=== PATIENT | male | born 1970 | race Caucasian/White ===

== ENCOUNTER 2020-08-17 14:30 | Emergency (ER) | payer OTHER, SELFPAY ==
[2020-08-17 14:31] VITALS: BP 126/74; PULSE 107; RESP 16; TEMP 38.1; O2SAT 96; BMI 28.5
--- NOTE | 2020-08-17 15:02 | RAD_ITS ---
STUDY: X-RAY CHEST REASON FOR EXAM: Male, 49 years old. Cough TECHNIQUE: Single AP portable view of the chest. COMPARISON: None. FINDINGS: Patchy left lower lobe infiltrate. There is no demonstrated pleural abnormality. Normal size heart. Normal mediastinum and jose. Normal visualized pulmonary arteries. Normal visualized aortic arch and descending thoracic aorta. Normal visualized thoracic spine. Normal visualized ribs, clavicles, and shoulders. There is no demonstrated abnormality of the visualized soft tissue structures of the upper abdomen. RAD/Chest 1 View (Portable) IMPRESSION: Patchy left lower lobe infiltrate. Electronically Signed: Juventino Delcid MD at 15:16 EDT , Service support ,
--- NOTE | 2020-08-17 16:10 | EX.ED.DYSGE1 ---
HPI History of Present Illness Chief Complaint: Fever Narrative Narrative: 49-year-old male reports he has a fever that began 4:00 this morning. Is been up to 102 degrees. He reports he has a little cough. This is nonproductive. He does complain of mild shortness of breath. He denies any abdominal pain, nausea, vomiting or diarrhea. He does report he has diffuse myalgias and a headache that is 3 out of 10 severity. Is a diffuse aching pain. He complains of diffuse weakness as well. PFSH [facility] Home Medications levofloxacin 500 mg PO DAILY #7 tab 08/17/20 [Rx Last Taken Unknown] Allergy/AdvReac Type Severity Reaction Status Date / Time tree nut Allergy NEEDS Verified 08/17/20 14:33 FOLLOW-UP Social History Smoking Status: Current every day smoker tobacco type: cigarettes ROS ROS ED Constitutional Constitutional ED: Reports chills and fever(s); Denies sweats Eyes Eyes: Denies change in vision ENT ENT ED: Denies sore throat Cardiovascular Cardiovascular: Denies chest pain Respiratory/Chest Respiratory/Chest: Reports cough and dyspnea; Denies dyspnea on exertion Gastrointestinal Gastrointestinal: Denies abdominal pain, diarrhea, melena, nausea or vomiting Genitourinary Genitourinary ED: Denies dysuria or urinary frequency Musculoskeletal Musculoskeletal: Reports myalgias Integumentary Denies rash Neurologic Neurologic: Reports headache(s) and weakness; Denies paresthesias EXAM Physical Exam Const Vital Signs: 08/17/20 14:31 08/17/20 15:29 Temperature 100.5 F H Temperature Source Temporal Pulse Rate 107 H Respiratory Rate 16 Respiratory Effort Normal Respiratory Pattern Normal Blood Pressure 126/74 H Blood Pressure Mean 91 Pulse Ox 96 Oxygen Delivery Method Room Air Positive well nourished and well developed General Appearance ED: well developed HEENT Reports normocephalic and head/scalp atraumatic Eyes PERRL Neck no lymphadenopathy, supple and no JVD General: Negative for tenderness Resp normal respiratory effort and clear to auscultation bilaterally Cardio regular rate, regular rhythm and no murmurs GI normal to inspection, nondistended, normoactive bowel sounds and non-tender GI Narrative: No guarding, rebound, or peritoneal signs. Palpation: soft Back/Spine Back/Spine Narrative: Nontender. Extremity General Extremety ED: Negative for edema or tenderness General Extremity: Negative for edema Neuro oriented x3, CN's II-XII intact bilaterally and no sensory deficits noted Sensorium / Orientation: alert Motor Exam: strength 5/5 throughout Psych mental status grossly normal Skin no rashes or lesions noted MDM MDM Radiography Diagnostic Testing: Radiology Impression Chest X-Ray 08/17/20 15:02 IMPRESSION: Patchy left lower lobe infiltrate. Electronically Signed: Juventino Delcid MD at 15:16 EDT , Service support , Treatment and Re-Evaluation Comments:: Emergency department course: COVID-19 is negative. Patient does not have insurance and want to minimize the bill. He refused an IV and labs. He feels well and would like to go home. Treatment plan: Patient will be discharged with Levaquin. Instructed to follow-up his primary care physician in 3 to 5 days if not improving. Return to the emergency department for any worsening symptoms. Disposition: To home in improved and stable condition. This note was generated with [employer] dictation software. It may contain incorrect words, spelling, and punctuation that were not noted in review of the chart prior to signing. Discharge Plan Triage Chief Complaint: Fever ED Provider: Segundo Saavedra Dx/Rx/DC Orders Clinical Impression: Pneumonia Instructions: ED Pneumonia (Adult) Prescriptions: New levofloxacin [levofloxacin] 500 MG tablet 500 mg PO DAILY Qty: 7 RF: 0 Primary Care Provider: Care Physician,No Primary Referrals: Alexandria Kirby [NON-STAFF] - 1 Week if not improving Care Physician,No Primary [Primary Care Provider] - Disposition Disposition: Home, self care Discharge Date/Time: 08/17/20 16:24
== END 2020-08-17 16:24 | disposition home or self-care (01) ==
LOC: ED 15:34
PROVIDERS: Emergency Provider Emergency Medicine
DX: J18.9 Pneumonia, unspecified organism (principal); F17.210 Nicotine dependence, cigarettes, uncomplicated
CPT/HCPCS: 71045; 87426; 99282

== ENCOUNTER 2022-11-05 05:11 | Emergency (ER) | payer BC, SELFPAY ==
[2022-11-05 05:12] VITALS: BP 135/83; PULSE 67; RESP 19; TEMP 36.3; O2SAT 98; BMI 25.1
--- NOTE | 2022-11-05 05:39 | RAD_ITS ---
EXAM: XR CHEST, 2 VIEWS CLINICAL INDICATION: chest pain TECHNIQUE: Frontal and lateral views of the chest. COMPARISON: 06/17/2020. FINDINGS: LUNGS AND PLEURAL SPACES: Previously noted left lingular pneumonia has resolved. No pneumothorax. No effusion. HEART: Unremarkable. Cardiac silhouette not enlarged. MEDIASTINUM: Central airways and mediastinal contour are unremarkable. BONES/JOINTS: Unremarkable. SOFT TISSUES: Unremarkable. RAD/Chest PA and Lateral IMPRESSION: Previously noted left lingular pneumonia has resolved. No acute abnormality. Electronically Signed: Duke Koenig MD at 6:18 EDT ,
[2022-11-05] MEDS: 0.9% Normal Saline 1,000 ML 999 ML IV (05:43)
[2022-11-05] MEDS: Aspirin 325 MG Tablet PO (05:43)
[2022-11-05 05:46] LABS: Absolute Lymphocyte Count 1.93 X10^3/uL (0.83-4.51); Absolute Neutrophil Count 6.6 X10^3/uL (2.0-7.7); Basophil# 0.06 X10^3/uL; Basophil% 0.6 % (0-1); Eosinophil# 0.73 X10^3/uL; Eosinophils% 7.1 % (0-5); Hematocrit 47.5 % (40-54); Hemoglobin 15.9 g/dL (13.0-16.5); Lymphocyte # 1.93 X10^3/ul (0.83-4.51); Lymphocyte % 18.7 % (19-41); Mean Corp Hgb Conc 33.5 g/dL (32-36); Mean Corpuscular Hgb 32.6 pg (27.0-32.0); Mean Corpuscular Volume 97.3 fL (80-94); Mean Platelet Vol. 10.2 fl (6.2-12.0); Monocyte# 0.98 X10^3/uL; Monocyte% 9.5 % (0-10); NRBC Flagged by Analyzer 0 % (0-5); Neutrophil # 6.56 X10^3/uL (2.7-7.7); Neutrophil % 63.6 % (47-70); Platelet Count 279 K/mm3 (150-450); RBC Distribution Width CV 12.7 % (11.6-14.6); RBC Distribution Width SD 45.5 fl (35.1-43.9); Red Blood Count 4.88 M/mm3 (4.6-6.2); White Blood Count 10.3 K/mm3 (4.4-11.0)
--- NOTE | 2022-11-05 05:48 | EKG12_ITS ---
Test Reason : CP Blood Pressure : / mmHG Vent. Rate : 062 BPM Atrial Rate : 062 BPM P-R Int : 152 ms QRS Dur : 100 ms QT Int : 406 ms P-R-T Axes : 064 062 046 degrees QTc Int : 412 ms Normal sinus rhythm Normal ECG Confirmed by MINAL RILEY ([id number]), fashion editor ОЛЬГА GUERRA ([id number]) on 11/09/2022 9:30:45 AM Referred By: ACOSTA Confirmed By:MINAL RILEY
[2022-11-05 05:58] LABS: D-Dimer Quantitative (DVT/PE) 0.33 FEU/ug/m (0.27-0.49)
[2022-11-05 06:06] LABS: Anion Gap 6 (5-15); BUN 10 mg/dL (7-18); BUN/Creat Ratio 12.9 RATIO (10-20); Calcium,Total 8.6 mg/dL (8.5-10.1); Chloride 108 mmol/L (98-107); Creatinine, Serum 0.78 mg/dL (0.70-1.30); EST Glomerular Filtration Rate 111 mL/min (>60); Est Glom Filt Rate - Afr Amer 135 mL/min (>60); Estimated Creatinine Clearance 120.21 ml/min; Glucose 102 mg/dL (74-106); Magnesium 2.1 mg/dL (1.6-2.6); Potassium 3.6 mmol/L (3.5-5.1); Sodium Level 138 mmol/L (136-145); Troponin-I HS 4 pg/mL (3.0-78.0)
--- NOTE | 2022-11-05 06:16 | EX.ED.DYSGE1 ---
HPI History of Present Illness Chief Complaint: Chest Pain Informant: patient Narrative Narrative: Patient is a 52-year-old male with past medical history of smoking. He states he has had mild left-sided chest discomfort for 2 days that has been constant in nature but can wax and wane in severity. He states it does seem to increase with inspiration. He denies any recent travel surgery or history of DVT/PE. He denies any history of hypertension hyperlipidemia diabetes or previous heart issues. He states that today he was at work when he felt lightheaded and just off associated with this chest pain and therefore was concerned this could be cardiac in nature he presents for evaluation [facility] Home Medications NK 11/05/22 [History Last Taken Unknown] Allergy/AdvReac Type Severity Reaction Status Date / Time tree nut Allergy NEEDS Verified 11/05/22 05:16 FOLLOW-UP Surgical History (Updated 11/05/22 @ 05:14 by Cat Hsu) History of appendectomy Social History Smoking Status: Current every day smoker tobacco type: cigarettes ROS ROS ED Constitutional Constitutional ED: Denies chills or fever(s) ENT ENT ED: Denies sore throat Cardiovascular Cardiovascular: Reports chest pain; Denies palpitations or racing heartbeat Respiratory/Chest Respiratory/Chest: Denies cough or dyspnea Gastrointestinal Gastrointestinal: Denies abdominal pain, diarrhea, nausea or vomiting Genitourinary Genitourinary ED: Denies dysuria Musculoskeletal Musculoskeletal: Denies myalgias Integumentary Denies rash Neurologic Neurologic: Denies headache(s) Hematologic/Lymphatic Hematologic/Lymphatic: Denies easy bleeding or easy bruising EXAM Physical Exam Const Vital Signs: 11/05/22 05:12 Temperature 97.4 F L Temperature Source Temporal Pulse Rate 67 Respiratory Rate 19 H Blood Pressure 135/83 H Blood Pressure Mean 100 Pulse Ox 98 Oxygen Delivery Method Room Air Positive well nourished and well developed General Appearance ED: well developed; Negative for pallor HEENT Reports dry mucous membranes HEENT Narrative: Mucous membranes are dry and tacky. No tongue or lip swelling no oral lesions no airway edema or compromise. Mouth ED: Yes dry mucous membranes Mouth: dry mucous membranes Eyes PERRL and EOMs intact bilaterally General Eye ED: Negative for scleral icterus Neck supple and no JVD Chest Wall palpation of chest normal Chest Narrative: No bony deformity or crepitance Resp normal respiratory effort and clear to auscultation bilaterally Resp Narrative: No nasal flaring retractions tachypnea or accessory muscle use Cardio regular rate and regular rhythm Rate: other Other Details: Radial and carotid pulses are equal and symmetric GI normal to inspection, nondistended, normoactive bowel sounds, non-tender, non-distended and no masses GI Narrative: No voluntary guarding or rigidity. No pulsatile mass or fluid wave Auscultation: normoactive bowel sounds Palpation: soft Extremity normal to inspection Extremity Narrative: No asymmetric edema no pitting edema negative Homans' sign bilaterally Neuro oriented x3 and CN's II-XII intact bilaterally Sensorium / Orientation: alert Motor Exam: strength 5/5 throughout Psych Psych Narrative: Patient has a flat affect Skin no rashes or lesions noted General Skin Exam: Negative for jaundice or pallor MDM MDM MDM Narrative Medical decision making narrative: Patient presented to the ER with stable vitals and reported that he had constant chest pain that was left-sided for the past 2 days but it would wax and wane in severity. He reported it could slightly worsen with inspiration. Differential diagnosis for acute coronary syndrome versus cardiac dysrhythmia versus pulmonary embolus versus pneumonia or pneumothorax. Patient blood work was obtained which shows a troponin of 4 and as patient's pain has been constant for over 24 hours I do not feel there is need for a delta troponin based on this normal value. D-dimer was obtained based on his report of worsening pain with inspiration and it is normal at 0.33 going against PE or dissection. Chest x-ray revealed no obvious lung pathology as a cause of his symptoms either. Therefore at this time with negative D-dimer normal troponin and no lung pathology noted on imaging study I do not feel there is need for further work-up in the ER and patient is otherwise safe for discharge History & Record Review Discussion w/independent historian: Patient Lab Data Attestation: I reviewed the patient's lab results. Labs: Laboratory Results - last 24 hr 11/05/22 05:20 WBC 10.3 RBC 4.88 Hgb 15.9 Hct 47.5 MCV 97.3 H MCH 32.6 H MCHC 33.5 RDW Std Deviation 45.5 H RDW Coeff of Buffy 12.7 Plt Count 279 MPV 10.2 Immature Gran % (Auto) 0.500 Neut % (Auto) 63.6 Lymph % (Auto) 18.7 L [place] % (Auto) 9.5 Eos % (Auto) 7.1 H Baso % (Auto) 0.6 Absolute Neuts (auto) 6.6 Absolute Lymphs (auto) 1.93 Nucleated RBC % 0 D-Dimer Quant (PE/DVT) 0.33 Sodium 138 Potassium 3.6 Chloride 108 H Carbon Dioxide 24.0 Anion Gap 6 BUN 10 Creatinine 0.78 Estim Creat Clear Calc 120.21 Est GFR (MDRD) Af Amer 135 Est GFR (MDRD) Non-Af 111 BUN/Creatinine Ratio 12.9 Glucose 102 Calcium 8.6 Magnesium 2.1 Troponin I High Sens 4 Radiography Diagnostic Testing: Clinical Impression(s) from Imaging Studies Chest X-Ray 11/05/22 05:39 IMPRESSION: Previously noted left lingular pneumonia has resolved. No acute abnormality. Electronically Signed: Duke Koneig MD at 6:18 EDT , Chest x-ray as interpreted by the emergency medicine physician reveals hyperinflated lungs consistent with smoking history/COPD but no acute infiltrate pneumothorax or pleural effusion Discharge Plan Triage Chief Complaint: Chest Pain ED Provider: Zaire Rivas Dx/Rx/DC Orders Clinical Impression: Nonspecific chest pain, Tobacco abuse Instructions: ED Chest Pain, Uncertain Cause Prescriptions: No Action NK Primary Care Provider: Care Physician,No Primary Referrals: Mike Crews, [Med Staff - [employer]] - Care Physician,No Primary [Primary Care Provider] - Activity Restrictions/Additional Instructions: Your work-up today did not show any signs of active heart disease or potential blood clot. There is no obvious pneumonia noted on your x-ray either. Please follow-up with your family physician for repeat evaluation and discuss potential further testing such as stress test or heart cath if symptoms persist and return to the ER should you have any further concerns Disposition Disposition: Home, Self Care Discharge Date/Time: 11/05/22 07:01
== END 2022-11-05 07:01 | disposition home or self-care (01) ==
PROVIDERS: Emergency Provider Emergency Medicine; Visit Provider Emergency Medicine
DX: R07.9 Chest pain, unspecified (principal); F17.210 Nicotine dependence, cigarettes, uncomplicated
CPT/HCPCS: 71046; 80048; 83735; 84484; 85025; 85379; 93005; 96360; 99283; J7030

== ENCOUNTER 2024-01-21 07:17 | Inpatient (IN) | payer BC, SELFPAY ==
[2024-01-21] VITALS (17 sets, daily range): BP systolic 114–145; BP diastolic 64–91; PULSE 63–88; RESP 16–23; TEMP 36.8–37.4; O2SAT 93–99; BMI 24.5; BMI 25.9
--- NOTE | 2024-01-21 07:37 | EKG12_ITS ---
Test Reason : CP Blood Pressure : */* mmHG Vent. Rate : 86 BPM Atrial Rate : 86 BPM P-R Int : 138 ms QRS Dur : 86 ms QT Int : 352 ms P-R-T Axes : 78 77 60 degrees QTcB Int : 421 ms Normal sinus rhythm Normal ECG Confirmed by DARSHANA RHODES, RUBEN ([id number]), subeditor LEVI LOERA ([id number]) on 01/23/2024 8:13:27 AM Referred By: Confirmed By: RUBEN GILLILAND MD
--- NOTE | 2024-01-21 07:37 | CT_ITS ---
INDICATION: AORTIC DISSECTION. Chest pain. Right leg numbness. EXAMINATION: CTA CHEST, ABDOMEN AND PELVIS WITH CONTRAST - TECHNIQUE: A CTA of the chest, abdomen, and pelvis is obtained with sagittal and coronal reconstructed MIP views. Three-dimensional surface rendered sequence of the thoracic and abdominal aorta was obtained. A radiation dose optimization technique was used for this scan. mL of Isovue-[id number]. Oral contrast: None. COMPARISON: None. FINDINGS: CT CHEST: THORACIC AORTA: No atheromatous disease, no aneurysmal changes or dissection. ABDOMINAL AORTA: No aneurysm or dissection. No significant atheromatous disease. The iliac arteries are unremarkable. LUNGS: The lungs are well-expanded without acute or chronic changes. No effusions or pneumothorax. MEDIASTINUM: The thyroid gland is normal. No mediastinal or hilar adenopathy. HEART: Heart is normal size. No pericardial effusion. No CAD. CT ABDOMEN AND PELVIS: LIVER: The liver enhances homogeneously. No masses identified. GALLBLADDER: The CBD is normal. Normal gallbladder. SPLEEN: Normal. PANCREAS: No masses or inflammation. ADRENAL GLANDS: Normal. KIDNEYS AND URETERS: The kidneys both enhance appropriately. There are normal size and shape. No hydronephrosis or nephrolithiasis. No renal masses or cysts. STOMACH: Small hiatal hernia. SMALL BOWEL: No abnormal distention of the small bowel. MESENTERY: No mesenteric inflammation. No ascites. COLON: No significant diverticulosis, masses or inflammation. The colon otherwise is normal. There is a large fatty ileocecal valve. APPENDIX: The appendix is visualized and normal. IVC: Normal. RETROPERITONEUM: No retroperitoneal lymphadenopathy. PELVIC STRUCTURES: Normal bladder. SOFT TISSUES ABDOMEN: The anterior abdominal wall is normal. SOFT TISSUE CHEST: The extrathoracic soft tissues are normal. BONES: No fractures or significant degenerative disease. CT/CTA Chst, Abd, Pel W and/or WO IMPRESSION: Normal contrast-enhanced CT of the chest. Normal contrast-enhanced CT of the abdomen and pelvis. Electronically Signed: Juventino Delcid MD at 9:00 EDT ,
--- NOTE | 2024-01-21 07:41 | EX.ED.DYSGE1 ---
HPI History of Present Illness Chief Complaint: Chest Pain Informant: patient Narrative Narrative: 53-year-old male presenting to the emergency room for chest pain. Patient states that Friday night around 8:00 he developed a pressure in his chest that radiated up into his neck and developed a throbbing frontal headache. He states he feels like he has a knife in the front of his chest going into the back. Friday night he reports numbness over the right thigh. Symptoms improved but during the night he felt worse. He notes that he has recently cut back on his tobacco use. He denies any known medical problems. He does not know who his doctor is. He notes no fevers or change in cough. No vomiting or diarrhea. No rashes. He states his arms feel heavy. He feels off balance when he goes to walk but the room is not spinning. PFSH PFS Home Medications ?Medication ?Instructions ?Recorded ?Last Taken ?Type NK 11/05/22 Unknown History Allergy/AdvReac Type Severity Reaction Status Date / Time tree nut Allergy NEEDS Verified 11/05/22 05:16 FOLLOW-UP Surgical History History of appendectomy Social History Smoking Status: Current every day smoker tobacco type: cigarettes ROS ROS ED Constitutional Constitutional ED: Denies chills, fever(s) or weight loss Eyes Eyes: Denies change in vision or diplopia ENT ENT ED: Reports rhinorrhea and other Details: Mild sinus congestion/drainage ; Denies ear pain or sore throat Cardiovascular Cardiovascular: Reports chest pain; Denies orthopnea, palpitations or racing heartbeat Respiratory/Chest Respiratory/Chest: Denies cough, dyspnea or orthopnea Gastrointestinal Gastrointestinal: Denies abdominal pain, diarrhea, nausea or vomiting Genitourinary Genitourinary ED: Denies dysuria, hematuria or urinary frequency Musculoskeletal Musculoskeletal: Reports back pain; Denies arthralgias or myalgias Integumentary Denies abscess or rash Neurologic Neurologic: Reports headache(s) and paresthesias; Denies weakness Psychiatric Psychiatric: Denies anxiety, depression, suicidal ideation or suicidal thoughts Endocrine Endocrinology: Denies polydipsia, polyphagia or polyuria Allergic/Immunologic Allergic/Immunologic ED: Denies mouth swelling, tongue swelling or urticaria EXAM Physical Exam Const Vital Signs: 01/21/24 07:18 01/21/24 07:19 01/21/24 07:26 Temperature 99.2 F H Temperature Source Oral Pulse Rate 88 86 Respiratory Rate 16 18 Respiratory Effort Normal Non-Labored Respiratory Pattern Normal Blood Pressure 136/86 H 145/88 H Blood Pressure Mean 102 107 Pulse Ox 98 93 Oxygen Delivery Method Room Air Room Air 01/21/24 08:18 01/21/24 09:00 01/21/24 10:00 Temperature Temperature Source Pulse Rate 69 71 77 Respiratory Rate 16 21 H 23 H Respiratory Effort Respiratory Pattern Blood Pressure 128/81 H 116/73 120/79 Blood Pressure Mean 96 87 92 Pulse Ox 99 99 99 Oxygen Delivery Method Room Air Room Air Room Air 01/21/24 11:00 01/21/24 12:00 01/21/24 12:05 Temperature 99.4 F H Temperature Source Oral Pulse Rate 74 76 80 Respiratory Rate 22 H 16 18 Respiratory Effort Respiratory Pattern Blood Pressure 121/66 H 114/64 114/64 Blood Pressure Mean 84 80 80 Pulse Ox 97 93 97 Oxygen Delivery Method Room Air Room Air Room Air 01/21/24 12:48 Temperature 99.4 F H Temperature Source Pulse Rate 82 Respiratory Rate 22 H Respiratory Effort Respiratory Pattern Blood Pressure 115/77 Blood Pressure Mean 89 Pulse Ox 93 Oxygen Delivery Method Positive well nourished and well developed General Appearance ED: well developed HEENT Reports normocephalic, head/scalp atraumatic and moist mucous membranes Eyes PERRL and EOMs intact bilaterally Neck no lymphadenopathy, supple and no JVD Resp normal respiratory effort and clear to auscultation bilaterally Cardio regular rate, regular rhythm and no murmurs Cardio Narrative: +2 radial pulse in the upper extremities. Normal carotid upstroke bilaterally GI normal to inspection, nondistended, normoactive bowel sounds and non-tender Palpation: soft Back/Spine no CVA tenderness and normal ROM Extremity normal to inspection General Extremety ED: Negative for edema General Extremity: Negative for edema Neuro oriented x3 and CN's II-XII intact bilaterally Sensorium / Orientation: alert Motor Exam: strength 5/5 throughout Psych mental status grossly normal Mood & Affect: Negative for depressed or tearful Skin no rashes or lesions noted and no wounds MDM MDM MDM Narrative Medical decision making narrative: Differential diagnosis would include but not limited to aortic dissection aneurysm pulmonary embolism acute coronary syndrome electrolyte abnormalities anemia brain mass/intracranial hemorrhage reflux EKG done upon arrival shows a sinus rhythm with no concerning ST segments. I was concerned for aortic dissection and a CTA of the chest abdomen pelvis was ordered which was negative for dissection or embolism. No obvious intra-abdominal pathology to explain his symptomology. Basic blood work was obtained 2 sets of cardiac enzymes are negative no electrolyte disturbance is observed urinalysis is negative patient's hemoglobin is 15.6 initially patient's lactic acid 2.1 then down to 1.1 question significance of this as he does not appear to be in a shock state. The patient has had several runs of NSVT. Rate approaches around 200. Its narrow complex in nature and terminates on its own. Patient does note that he has had this for a long time but nobody has been able to identify it or capture it. He has had stress test and Holter monitor. He states that he had been going to attributed to stress. Interesting though when the patient had the SVT he stated that the pain got worse. However there are times where he has the pain that he does not have that tachycardia. I do not have a clear etiology for the patient's pain but I am concerned enough that I think it is reasonable to observe him in the hospital. History & Record Review Discussion w/independent historian: Patient and Family Lab Data Attestation: I reviewed the patient's lab results. Labs: Laboratory Results - last 24 hr 01/21/24 01/21/24 01/21/24 07:29 08:57 09:42 WBC 10.3 RBC 4.61 Hgb 15.6 Hct 45.0 MCV 97.6 H MCH 33.8 H MCHC 34.7 RDW Std Deviation 43.7 RDW Coeff of Buffy 12.0 Plt Count 279 MPV 10.1 Immature Gran % (Auto) 0.300 Neut % (Auto) 78.2 H Lymph % (Auto) 8.1 L [place] % (Auto) 9.6 Eos % (Auto) 3.3 Baso % (Auto) 0.5 Absolute Neuts (auto) 8.0 H Absolute Lymphs (auto) 0.83 Nucleated RBC % 0 PT 12.5 INR 0.9 APTT 27.7 Sodium 141 Potassium 4.0 Chloride 112 H Carbon Dioxide 23.0 Anion Gap 6 BUN 6 L Creatinine 0.80 Estim Creat Clear Calc 108.99 Est GFR (MDRD) Af Amer 129 Est GFR (MDRD) Non-Af 106 BUN/Creatinine Ratio 7.5 L Glucose 112 H Lactic Acid 2.1 H* Calcium 8.8 Total Bilirubin 0.40 Direct Bilirubin 0.19 AST 16 ALT 18 Alkaline Phosphatase 75 Troponin I High Sens < 3 L 3 Total Protein 6.6 Albumin 3.1 L Globulin 3.5 Urine Color Yellow Urine Clarity Clear Urine pH 7.0 Ur Specific [place] 1.005 Urine Protein 15 H Urine Glucose (UA) Normal Urine Ketones Negative Urine Occult Blood 50 H Urine Nitrite Negative Urine Bilirubin Negative Urine Urobilinogen Normal Ur Leukocyte Esterase 25 H Urine RBC 0-5 SEEN Urine WBC 0-5 SEEN Ur Squamous Epith Cells 0-5 SEEN Urine Bacteria 0 SEEN Urine Mucus 0 SEEN 01/21/24 12:00 WBC RBC Hgb Hct MCV MCH MCHC RDW Std Deviation RDW Coeff of Buffy Plt Count MPV Immature Gran % (Auto) Neut % (Auto) Lymph % (Auto) [place] % (Auto) Eos % (Auto) Baso % (Auto) Absolute Neuts (auto) Absolute Lymphs (auto) Nucleated RBC % PT INR APTT Sodium Potassium Chloride Carbon Dioxide Anion Gap BUN Creatinine Estim Creat Clear Calc Est GFR (MDRD) Af Amer Est GFR (MDRD) Non-Af BUN/Creatinine Ratio Glucose Lactic Acid 1.1 Calcium Total Bilirubin Direct Bilirubin AST ALT Alkaline Phosphatase Troponin I High Sens Total Protein Albumin Globulin Urine Color Urine Clarity Urine pH Ur Specific [place] Urine Protein Urine Glucose (UA) Urine Ketones Urine Occult Blood Urine Nitrite Urine Bilirubin Urine Urobilinogen Ur Leukocyte Esterase Urine RBC Urine WBC Ur Squamous Epith Cells Urine Bacteria Urine Mucus Radiography Diagnostic Testing: Clinical Impression(s) from Imaging Studies Chest/Abdomen/Pelvis CTA 01/21/24 07:37 IMPRESSION: Normal contrast-enhanced CT of the chest. Normal contrast-enhanced CT of the abdomen and pelvis. Electronically Signed: Juventino Delcid MD at 9:00 EDT , Brain CT 01/21/24 11:07 IMPRESSION: Normal unenhanced CT scan of the brain. Sinusitis. Electronically Signed: Juventino Delcid MD at 11:34 EDT , EKG Initial EKG: Attestation: I personally reviewed and interpreted this EKG as follows: Comments: Normal sinus rhythm ventricular rate of 86 bpm Management Discussion w/another healthcare provider: Hospitalist (Dr. Loyola) Discharge Plan Dx/Rx/DC Orders Clinical Impression: SVT (supraventricular tachycardia), Chest pain, Dizziness Disposition Disposition: Acute Care Hospital [facility] Discharge Date/Time: 01/21/24 13:54
[2024-01-21 07:56] LABS: Absolute Lymphocyte Count 0.83 X10^3/uL (0.83-4.51); Basophil# 0.05 X10^3/uL; Basophil% 0.5 % (0-1); Eosinophil# 0.34 X10^3/uL; Eosinophils% 3.3 % (0-5); Hemoglobin 15.6 g/dL (13.0-16.5); Lymphocyte # 0.83 X10^3/ul (0.83-4.51); Lymphocyte % 8.1 % (19-41); Mean Corp Hgb Conc 34.7 g/dL (32-36); Mean Corpuscular Hgb 33.8 pg (27.0-32.0); Mean Corpuscular Volume 97.6 fL (80-94); Mean Platelet Vol. 10.1 fl (6.2-12.0); Monocyte# 0.98 X10^3/uL; Monocyte% 9.6 % (0-10); NRBC Flagged by Analyzer 0 % (0-5); Neutrophil # 8.03 X10^3/uL (2.7-7.7); Neutrophil % 78.2 % (47-70); Platelet Count 279 K/mm3 (150-450); RBC Distribution Width SD 43.7 fl (35.1-43.9); Red Blood Count 4.61 M/mm3 (4.6-6.2); White Blood Count 10.3 K/mm3 (4.4-11.0)
[2024-01-21 08:42] LABS: Lactic Acid 2.1 mmol/L (0.4-1.9)
[2024-01-21 08:45] LABS: International Normalized Ratio 0.9; Partial Thromboplast Time 27.7 Seconds (24.1-36.2); Prothrombin Time (Protime)PT. 12.5 SECONDS (11.7-14.9)
[2024-01-21 08:54] LABS: AST(SGOT) 16 U/L (15-37); Alanine Aminotransfer ALT/SGPT 18 U/L (16-61); Albumin, Serum 3.1 g/dL (3.2-5.0); Alkaline Phosphatase 75 U/L (45-117); Anion Gap 6 (5-15); BUN 6 mg/dL (7-18); BUN/Creat Ratio 7.5 RATIO (10-20); Bilirubin, Direct 0.19 mg/dL (0.00-0.30); Calcium,Total 8.8 mg/dL (8.5-10.1); Chloride 112 mmol/L (98-107); EST Glomerular Filtration Rate 106 mL/min (>60); Est Glom Filt Rate - Afr Amer 129 mL/min (>60); Estimated Creatinine Clearance 108.99 ml/min; Globulin 3.5 g/dL (2.2-4.2); Glucose 112 mg/dL (74-106); Protein, Total 6.6 g/dL (6.4-8.2); Sodium Level 141 mmol/L (136-145); Troponin-I HS (w/2H Reflex) < 3 pg/mL (3.0-78.0)
[2024-01-21 09:00] LABS: Bacteria 0 SEEN /hpf (None Seen); Mucous, Urine 0 SEEN /hpf (<or=2+)
[2024-01-21 09:01] LABS: Color, Urine Yellow (Yellow); Glucose, Dipstick Normal (Normal); Ketone-Dipstick Negative (Negative); Leukocyte Esterase-Dipstick 25 /ul (Negative); Nitrite-Dipstick Negative (Negative); Occult Blood-Urine 50 /ul (Negative); Protein-Dipstick 15 mg/dl (Negative); Specific Gravity, Urine 1.005 (1.002-1.030); Urine Bilirubin Dipstick Negative (Negative); Urine Clarity Clear (Clear); Urine Urobilinogen Normal (Normal)
[2024-01-21 09:07] LABS: Red Blood Cells-Urine 0-5 SEEN /hpf (0-5); Squamous Epithelial Cells - UA 0-5 SEEN /hpf (0-5); White Blood Cells 0-5 SEEN /hpf (0-5)
[2024-01-21 09:53] LABS: Reflex Troponin-HS? (from REC) Y
[2024-01-21 10:20] LABS: Troponin-I HS 3 pg/mL (3.0-78.0)
--- NOTE | 2024-01-21 11:07 | CT_ITS ---
STUDY: CT BRAIN WITHOUT CONTRAST REASON FOR EXAM: Male, 53 years old. Headache. Patient had a previous injection of contrast for CT scan of the abdomen. RADIATION DOSAGE (If Supplied By Facility): CTDIvol = ( 44.99 ) mGy, DLP = ( 863.60 ) mGycm TECHNIQUE: Transaxial CT imaging of the brain was performed without administration of intravenous contrast material. Individualized dose optimization techniques were used for this CT. COMPARISON: No relevant priors. FINDINGS: Normal soft tissue structures. Normal calvarium. Normal size ventricles and extra-axial spaces for the patient''s age. Normal white matter tracts of the cerebral hemispheres. Normal basal ganglia and thalami. Normal brainstem. Normal cerebellum. There is no intracranial hemorrhage. There are no findings of an acute ischemic infarction. Partial opacification of the ethmoid sinuses and the left maxillary sinus. Mucosal thickening of the right maxillary sinus. CT/Brain/Head without Contrast IMPRESSION: Normal unenhanced CT scan of the brain. Sinusitis. Electronically Signed: Juventino Delcid MD at 11:34 EDT ,
[2024-01-21 11:53] LABS: Reflex Lactate? Y
[2024-01-21] MEDS: Ketorolac 30 MG/ML Syringe IV (11:55)
--- NOTE | 2024-01-21 12:31 | HP.PCM.HOS_ITS ---
HPI - General General Date of Admission: 01/21/24 Date of Service: 01/21/24 Chief Complaint: chest pain HPI Narrative AMITA MCCRACKEN, is a 53 M with a PMH as outlined who presents via the ED on 01/21/2024 with a complaint of chest pain. Chest pain started the night beore admission, and radiated to his neck. He had associated frontal headache adn felt like he was being stabbed in the chest with a knife. He denied any dizziness or lightheadedness, palpitation, nausea or vomiting. Review of systems otherwise negative. Vitals in the ED were BP of 114/64, NC of 80, RR of 18 and temp of 99.4F. He was saturating at 97% on room air. CBC showed Hb of 15.6, wbc of 10.3 and platelets of 279. INR was 0.9 and Chemistry showed sodium of 141, potassium of 4 and Cr of 0.8. Troponins x 2 were negative. CTA chest, abdomen adn pelvix was unremarkable and showed no evidence of aortic dissection or PE. He was noted to go into SVT in the ED with a heart rate of ~ 200, which spontaneously terminated. He did have associated chest pain at the time of the SVT. He is being admitted to be managed for chest pain to rule out ACS, in the setting of SVT [facility] Home Medications ?Medication ?Instructions ?Recorded ?Last Taken ?Type NK 11/05/22 Unknown History Allergy/AdvReac Type Severity Reaction Status Date / Time tree nut Allergy NEEDS Verified 11/05/22 05:16 FOLLOW-UP Surgical History History of appendectomy Social History Smoking Status: Current every day smoker tobacco type: cigarettes ROS Review of Systems ROS Unobtainable: Denies due to encephalopathy Constitutional Constitutional: Reports fatigue, malaise and weakness; Denies anorexia, chills or fever(s) Eyes Eyes: Denies change in vision ENT HEENT: Denies dysphagia, headache(s) or sore throat Cardiovascular Cardiovascular: Reports chest pain, dyspnea on exertion, lightheadedness, palpitations and rapid heart rate; Denies edema, orthopnea, paroxysmal nocturnal dyspnea or syncope Respiratory/Chest Respiratory/Chest: Reports dyspnea; Denies cough, productive cough, shortness of breath at rest or shortness of breath with exertion Gastrointestinal Gastrointestinal: Denies abdominal pain, constipation or diarrhea Genitourinary Genitourinary: Denies dysuria or hematuria Musculoskeletal Musculoskeletal: Denies arthralgias Neurologic Neurologic: Denies confusion, dizziness, focal weakness, headache(s) or numbness Psychiatric Psychiatric: Denies anxiety Vital Signs Vital Signs Vital Signs: 01/21/24 07:18 01/21/24 07:19 01/21/24 07:26 Temperature 99.2 F H Temperature Source Oral Pulse Rate 88 86 Respiratory Rate 16 18 Respiratory Effort Normal Non-Labored Respiratory Pattern Normal Blood Pressure 136/86 H 145/88 H Blood Pressure Mean 102 107 Pulse Ox 98 93 Oxygen Delivery Method Room Air Room Air 01/21/24 08:18 01/21/24 09:00 01/21/24 10:00 Temperature Temperature Source Pulse Rate 69 71 77 Respiratory Rate 16 21 H 23 H Respiratory Effort Respiratory Pattern Blood Pressure 128/81 H 116/73 120/79 Blood Pressure Mean 96 87 92 Pulse Ox 99 99 99 Oxygen Delivery Method Room Air Room Air Room Air 01/21/24 11:00 01/21/24 12:00 01/21/24 12:05 Temperature 99.4 F H Temperature Source Oral Pulse Rate 74 76 80 Respiratory Rate 22 H 16 18 Respiratory Effort Respiratory Pattern Blood Pressure 121/66 H 114/64 114/64 Blood Pressure Mean 84 80 80 Pulse Ox 97 93 97 Oxygen Delivery Method Room Air Room Air Room Air Weight Weight: 171 lb 4.787 oz Body Mass Index (BMI) 24.5 Physical Exam Const alert, oriented x3 and no apparent distress General Appearance: cooperative HEENT normocephalic, head/scalp atraumatic, moist oral mucous membranes and oropharynx normal Mouth: oral and palatal mucosa normal Eyes PERRL, EOMs intact bilaterally and conjunctivae normal Neck no lymphadenopathy and supple Resp normal respiratory effort, no retractions, no use of accessory muscles and clear to auscultation bilaterally Cardio regular rate, regular rhythm, S1 normal heart sound, S2 normal heart sound and no murmurs GI normal to inspection, nondistended, normoactive bowel sounds, soft to palpation, non-tender and non-distended Extremity normal to inspection, full ROM and no clubbing, cyanosis or edema Neuro oriented x3 and no focal motor deficits Sensorium / Orientation: awake and alert Motor Exam: strength 5/5 throughout Psych affect normal Results Lab / Micro Data 01/21/24 07:29 01/21/24 07:29 Labs: Laboratory Results - last 24 hr 01/21/24 07:29: WBC 10.3, RBC 4.61, Hgb 15.6, Hct 45.0, MCV 97.6 H, MCH 33.8 H, MCHC 34.7, RDW Std Deviation 43.7, RDW Coeff of Buffy 12.0, Plt Count 279, MPV 10.1, Immature Gran % (Auto) 0.300, Neut % (Auto) 78.2 H, Lymph % (Auto) 8.1 L, [place] % (Auto) 9.6, Eos % (Auto) 3.3, Baso % (Auto) 0.5, Absolute Neuts (auto) 8.0 H, Absolute Lymphs (auto) 0.83, Nucleated RBC % 0, PT 12.5, INR 0.9, APTT 27.7, Sodium 141, Potassium 4.0, Chloride 112 H, Carbon Dioxide 23.0, Anion Gap 6, BUN 6 L, Creatinine 0.80, Estim Creat Clear Calc 108.99, Est GFR (MDRD) Af Amer 129, Est GFR (MDRD) Non-Af 106, BUN/Creatinine Ratio 7.5 L, Glucose 112 H, Lactic Acid 2.1 H*, Calcium 8.8, Total Bilirubin 0.40, Direct Bilirubin 0.19, AST 16, ALT 18, Alkaline Phosphatase 75, Troponin I High Sens < 3 L, Total Protein 6.6, Albumin 3.1 L, Globulin 3.5 01/21/24 08:57: Urine Color Yellow, Urine Clarity Clear, Urine pH 7.0, Ur Specific [place] 1.005, Urine Protein 15 H, Urine Glucose (UA) Normal, Urine Ketones Negative, Urine Occult Blood 50 H, Urine Nitrite Negative, Urine Bilirubin Negative, Urine Urobilinogen Normal, Ur Leukocyte Esterase 25 H, Urine RBC 0-5 SEEN, Urine WBC 0-5 SEEN, Ur Squamous Epith Cells 0-5 SEEN, Urine Bacteria 0 SEEN, Urine Mucus 0 SEEN 01/21/24 09:42: Troponin I High Sens 3 Imaging Radiology Impression Chest/Abdomen/Pelvis CTA 01/21/24 07:37 IMPRESSION: Normal contrast-enhanced CT of the chest. Normal contrast-enhanced CT of the abdomen and pelvis. Electronically Signed: Juventino Delcid MD at 9:00 EDT , Brain CT 01/21/24 11:07 IMPRESSION: Normal unenhanced CT scan of the brain. Sinusitis. Electronically Signed: Juventino Delcid MD at 11:34 EDT , Assessment & Plan Assessment/Plan (1) Dizziness: (2) Chest pain: (3) SVT (supraventricular tachycardia): PLAN: Plan #Chest pain to rule out ACS * admit to PCU * PO aspirin 91mg daily * EKG showed no acute ST changes and showed SVT * get 2D echo * for stress test * SL nitroglycerin prn * cycle troponins. #SVT * Was found to be in SVT in the ED * EKG showed SVT. He also went into SVT when I was reviewing him, with HR going up to the 160s. This only improved with Valsalva maneuver. * Start on PO metoprolol * get 2D echo * cardiology consulted. * Keep K and Mg > 4 and 2 respectively * #Nicotine dependence * counseled to quit. Says he smokes a pack a day. Nicotine patch 21mg daily * #History of chronic alcohol abuse * drinks about 3-4 beers daily. * place on alcohol withdrawal protocol with ativan * monitor CIWA score * DVT prophylaxis; heparin. Code status: full code * Patient counseled extensively about different types of CODE STATUS including full code, DNR CCA and DNR CCA. Patient elects to be full code. Total ctua-fl-yoah time 17 minutes. Charges/Coding Visit Charges Inpatient E&M: 47935 Init Hosp L3 Procedures Hospitalists Procedures: 71154 Advncd Care Plan 30 Min
[2024-01-21 12:37] LABS: Lactic Acid 1.1 mmol/L (0.4-1.9)
--- NOTE | 2024-01-21 13:46 | ECHOD_ITS ---
Reason For Study: ARRHYTHMIA Procedure This was a 2D Doppler, Color Flow transthoracic echocardiogram. Exam performed portable in patient room. Left Ventricle Normal LV size. Left ventricular systolic function is normal. The left ventricular ejection fraction is 70 %. No regional wall motion abnormalities noted. Right Ventricle Normal RV size. Normal systolic function. Atria Normal left atrium. Normal right atrium. Mitral Valve Normal mitral valve. Tricuspid Valve Normal tricuspid valve. Aortic Valve Normal aortic valve. Pulmonic Valve Normal pulmonic valve. Great Vessels Normal aortic root. The pulmonary artery is normal size. Inferior vena cava collapse with respiration. Pericardium/Pleural No pericardial effusion. MMode/2D Measurements & Calculations LVIDd: 5.1 cm IVSd: 0.93 cm LVOT diam: 2.1 cm LVIDs: 3.7 cm LVPWd: 1.0 cm LVOT area: 3.3 cm2 RVDd: 4.2 cm FS: 28.1 % LA dimension: 3.5 cm LAV(MOD-bp): 64.3 ml LVAd ap4: 32.8 cm2 LAV(MOD-bp) Indexed: 32.9 ml/m2 LVLd ap4: 9.2 cm LAV(MOD-sp2): 61.5 ml EDV(MOD-sp4): 96.8 ml LAV(MOD-sp4): 64.1 ml EDV(sp4-el): 98.9 ml LVAs ap4: 13.4 cm2 LVLs ap4: 7.1 cm ESV(MOD-sp4): 23.0 ml ESV(sp4-el): 21.6 ml EF(MOD-sp4): 76.2 % EF(sp4-el): 78.1 % SV(MOD-sp4): 73.8 ml SV(sp4-el): 77.3 ml Ao sinus diam: 3.5 cm SI(MOD-sp4): 37.8 ml/m2 LA A4 area: 20.3 cm2 RA A4 area: 16.3 cm2 TAPSE: 2.5 cm Time Measurements MV dec time: 0.28 sec Doppler Measurements & Calculations MV E max olegario: 67.1 cm/sec Lat Peak E' Olegario: 16.4 cm/sec Med Peak E' Olegario: 13.6 cm/sec MV A max olegario: 65.6 cm/sec E/E' lat: 4.1 E/E' med: 4.9 MV E/A: 1.0 MV V2 max: 75.8 cm/sec MV P1/2t max olegario: 72.9 cm/sec Ao V2 max: 132.7 cm/sec MV max P.3 mmHg MV P1/2t: 67.1 msec Ao max P.0 mmHg MV V2 mean: 43.3 cm/sec Ao V2 mean: 91.3 cm/sec MV mean P.86 mmHg MV dec slope: 318.6 cm/sec2 Ao mean P.8 mmHg MV V2 VTI: 23.7 cm MVA(P1/2t): 3.3 cm2 Ao V2 VTI: 24.8 cm AV (velocity ratio): 0.89 MVA(VTI): 3.1 cm2 JANETH(I,D): 3.0 cm2 JANETH(V,D): 3.1 cm2 LV V1 max: 121.5 cm/sec SV(LVOT): 73.5 ml PA V2 max: 95.1 cm/sec LV V1 max P.0 mmHg PA max PG (full): 0.81 mmHg LV V1 mean P.2 mmHg LV V1 mean: 82.3 cm/sec LV V1 VTI: 22.1 cm ECHO/Echo Complete Interpretation Summary Normal LV size. Left ventricular systolic function is normal. The left ventricular ejection fraction is 70 %. Structurally normal valves. Ordering Physician: Emma Loyola Referring Physician: LANCE PCP Performed By: Ana Laura Reich RVT, RDCS and Student
[2024-01-21] MEDS: Metoprolol Tartrate 25 MG Tablet PO ×2 (14:28→20:48)
[2024-01-21 14:29] LABS: Troponin-I HS 4 pg/mL (3.0-78.0)
[2024-01-21 16:10] LABS: Magnesium 1.7 mg/dL (1.6-2.6)
--- NOTE | 2024-01-21 18:35 | PCM.CONS.C ---
Assessment & Plan Assessment/Plan (1) SVT (supraventricular tachycardia): PLAN: Patient presents with paroxysmal supraventricular tachycardia which on review of the EKG appears to be a short RP tachycardia. My recommendation at this stage as he remains in sinus rhythm is to continue him on the low-dose beta-urbano with Lopressor 25 mg twice a day, obtain a stress test to exclude ischemia, and we will set him up for a possible EP study with a view to possible ablation. (2) Chest pain: PLAN: He is chest pain-free at this time however coronary ischemia will need to be excluded with a stress test. His echocardiogram was reassuringly normal. There does not appear to be any evidence of pericarditis noted on his resting EKG or the echocardiographic findings. Thank you for allowing me to participate in the care of your patient. Please don't hesitate to call if any issues arise. HPI Consult Data Date of Consult: 01/21/24 HPI Narrative HPI Narrative: AMITA MCCRACKEN, is a 53 M who presents to the emergency room with chest pressure. He says that he has had this kind of symptomatology for a few months. However on Friday he started feeling pressure in his chest radiating up to his neck and a throbbing frontal headache. He also has occasional sharp discomfort. He does use tobacco products quite a bit as well as alcohol. He has no other medical problems. He presented to the emergency room and was intermittently going into a narrow complex tachycardia with rates of up to 150 bpm. Cardiac enzymes were noted to be normal and a CT scan of the head was also noted to be normal. An echocardiogram was performed which demonstrated preserved left ventricular systolic function. Cardiology was called for further evaluation and management. At this particular time he is free of any symptomatology. [facility] Home Medications ?Medication ?Instructions ?Recorded ?Last Taken ?Type NK 11/05/22 Unknown History Allergy/AdvReac Type Severity Reaction Status Date / Time tree nut Allergy NEEDS Verified 11/05/22 05:16 FOLLOW-UP Surgical History History of appendectomy Social History Smoking Status: Current every day smoker tobacco type: cigarettes ROS Constitutional Constitutional: Denies fever(s) or weight loss Eyes Eyes: Reports systems reviewed and no addt'l complaints, except as documented ENT HEENT: Reports systems reviewed and no addt'l complaints, except as documented Cardiovascular Cardiovascular: Reports palpitations; Denies chest pain at rest, chest pain with activity, dyspnea at rest, dyspnea on exertion, edema or paroxysmal nocturnal dyspnea Respiratory/Chest Respiratory/Chest: Denies dyspnea on exertion, productive cough, shortness of breath at rest or shortness of breath with exertion Gastrointestinal Gastrointestinal: Denies change in bowel habits, nausea, vomiting or weight changes Genitourinary Genitourinary: Denies difficulty urinating Musculoskeletal Musculoskeletal: Denies joint stiffness or muscle weakness Integumentary Integumentary: Denies lesions Neurologic Neurologic: Denies dizziness or syncope Psychiatric Psychiatric: Denies anxiety Endocrine Endocrinology: Denies excessive sweating or fatigue Hematologic/Lymphatic Hematologic/Lymphatic: Denies anemia Allergic/Immunologic Allergic/Immunologic: Denies seasonal rhinorrhea Physical Exam Const alert, oriented x3 and no apparent distress General Appearance: cooperative HEENT hearing grossly normal bilaterally Head and Scalp: atraumatic Eyes EOMs intact bilaterally Neck General: normal visual inspection Chest inspection of chest normal and palpation of chest normal Resp normal respiratory effort Auscultation: clear to auscultation bilaterally Cardio regular rate, regular rhythm, S1 normal heart sound and S2 normal heart sound Jugular Venous Distention: JVD GI normal to inspection, nondistended, normoactive bowel sounds Extremity normal capillary refill and no pedal edema Peripheral Pulses: Yes pulses 2+ throughout and femoral pulses present Skin no rashes or lesions noted Neuro oriented x3 and CN's II-XII intact bilaterally Psych Appearance: grossly normal and appropriate Risk Stratification Risk Stratification Applicable: No Objective Data Vital Signs: Vital Signs Temp Pulse Resp BP Pulse Ox O2 Del Method 98.4 F 63 16 128/74 H 97 Room Air 01/21/24 16:17 01/21/24 16:17 01/21/24 16:17 01/21/24 16:17 01/21/24 16:17 01/21/24 16:17 Oxygen Delivery Method Room Air Weight: 180 lb 5.41 oz Body Mass Index (BMI) 25.9 Intake & Output: Intake and Output for Last 24 Hours 01/19/24 01/20/24 01/21/24 23:59 23:59 23:59 Intake Total 440 / 440 Balance 440 / 440 Lab / Micro Data 01/21/24 07:29 01/21/24 07:29 Labs: Laboratory Results - last 24 hr 01/21/24 07:29: WBC 10.3, RBC 4.61, Hgb 15.6, Hct 45.0, MCV 97.6 H, MCH 33.8 H, MCHC 34.7, RDW Std Deviation 43.7, RDW Coeff of Buffy 12.0, Plt Count 279, MPV 10.1, Immature Gran % (Auto) 0.300, Neut % (Auto) 78.2 H, Lymph % (Auto) 8.1 L, [place] % (Auto) 9.6, Eos % (Auto) 3.3, Baso % (Auto) 0.5, Absolute Neuts (auto) 8.0 H, Absolute Lymphs (auto) 0.83, Nucleated RBC % 0, PT 12.5, INR 0.9, APTT 27.7, Sodium 141, Potassium 4.0, Chloride 112 H, Carbon Dioxide 23.0, Anion Gap 6, BUN 6 L, Creatinine 0.80, Estim Creat Clear Calc 108.99, Est GFR (MDRD) Af Amer 129, Est GFR (MDRD) Non-Af 106, BUN/Creatinine Ratio 7.5 L, Glucose 112 H, Lactic Acid 2.1 H*, Calcium 8.8, Total Bilirubin 0.40, Direct Bilirubin 0.19, AST 16, ALT 18, Alkaline Phosphatase 75, Troponin I High Sens < 3 L, Total Protein 6.6, Albumin 3.1 L, Globulin 3.5 01/21/24 08:57: Urine Color Yellow, Urine Clarity Clear, Urine pH 7.0, Ur Specific [place] 1.005, Urine Protein 15 H, Urine Glucose (UA) Normal, Urine Ketones Negative, Urine Occult Blood 50 H, Urine Nitrite Negative, Urine Bilirubin Negative, Urine Urobilinogen Normal, Ur Leukocyte Esterase 25 H, Urine RBC 0-5 SEEN, Urine WBC 0-5 SEEN, Ur Squamous Epith Cells 0-5 SEEN, Urine Bacteria 0 SEEN, Urine Mucus 0 SEEN 01/21/24 09:42: Troponin I High Sens 3 01/21/24 12:00: Lactic Acid 1.1 01/21/24 14:00: Magnesium 1.7, Troponin I High Sens 4 Cardiology Labs/Tests 01/21/24 07:29: WBC 10.3, RBC 4.61, Hgb 15.6, Hct 45.0, MCV 97.6 H, MCH 33.8 H, MCHC 34.7, Plt Count 279, MPV 10.1, Immature Gran % (Auto) 0.300, Neut % (Auto) 78.2 H, Lymph % (Auto) 8.1 L, [place] % (Auto) 9.6, Eos % (Auto) 3.3, Baso % (Auto) 0.5, Absolute Neuts (auto) 8.0 H, Nucleated RBC % 0, PT 12.5, INR 0.9, APTT 27.7, Sodium 141, Potassium 4.0, Chloride 112 H, Carbon Dioxide 23.0, Anion Gap 6, BUN 6 L, Creatinine 0.80, Est GFR (MDRD) Af Amer 129, Est GFR (MDRD) Non-Af 106, BUN/Creatinine Ratio 7.5 L, Glucose 112 H, Lactic Acid 2.1 H*, Calcium 8.8, Total Bilirubin 0.40, Direct Bilirubin 0.19 01/21/24 08:57: Urine Color Yellow, Urine Clarity Clear, Urine pH 7.0, Ur Specific [place] 1.005, Urine Protein 15 H, Urine Glucose (UA) Normal, Urine Ketones Negative, Urine Occult Blood 50 H, Urine Nitrite Negative, Urine Bilirubin Negative, Urine Urobilinogen Normal, Ur Leukocyte Esterase 25 H, Urine RBC 0-5 SEEN, Urine WBC 0-5 SEEN 01/21/24 12:00: Lactic Acid 1.1 01/21/24 14:00: Magnesium 1.7 Rhythm: EKG: ECHO: Stress Test: Cardiac Cath: PCI: CT Surgery: Holter monitor: EPS: PPM: CXR: Chest CT Scan: Radiography Diagnostic Testing: Radiology Impression Chest/Abdomen/Pelvis CTA 01/21/24 07:37 IMPRESSION: Normal contrast-enhanced CT of the chest. Normal contrast-enhanced CT of the abdomen and pelvis. Electronically Signed: Juventino Delcid MD at 9:00 EDT , Brain CT 01/21/24 11:07 IMPRESSION: Normal unenhanced CT scan of the brain. Sinusitis. Electronically Signed: Juventino Delcid MD at 11:34 EDT , Echocardiogram 01/21/24 13:46 Interpretation Summary Normal LV size. Left ventricular systolic function is normal. The left ventricular ejection fraction is 70 %. Structurally normal valves. Ordering Physician: Emma Loyola Referring Physician: LANCE PCP Performed By: Ana Laura Reich RVT, RDCS and Student
[2024-01-21] MEDS: Acetaminophen 325 MG Tablet 650 MG PO (20:50)
[2024-01-21] MEDS: oxyCODONE 5 MG Tablet PO (20:50)
[2024-01-21] MEDS: 0.9% Saline Lock 10 ML Syringe IV (20:51)
[2024-01-22 03:27] VITALS: BP 108/70; PULSE 54; RESP 18; TEMP 36.5; O2SAT 99
--- NOTE | 2024-01-22 05:55 | EKG12_ITS ---
Test Reason : AM EKG Blood Pressure : */* mmHG Vent. Rate : 63 BPM Atrial Rate : 63 BPM P-R Int : 146 ms QRS Dur : 94 ms QT Int : 434 ms P-R-T Axes : 73 65 51 degrees QTcB Int : 444 ms Normal sinus rhythm Normal ECG When compared with ECG of 21-Jan-2024 07:15, MANUAL COMPARISON REQUIRED DATA IS UNCONFIRMED Confirmed by DARSHANA RHODES, RUBEN ([id number]), video news editor ОЛЬГА GUERRA ([id number]) on 01/23/2024 11:14:29 AM Referred By: Confirmed By: RUEBN GILLILAND MD
[2024-01-22 06:23] LABS: Absolute Lymphocyte Count 1.98 X10^3/uL (0.83-4.51); Absolute Neutrophil Count 3.9 X10^3/uL (2.0-7.7); Basophil# 0.04 X10^3/uL; Basophil% 0.5 % (0-1); Eosinophil# 0.64 X10^3/uL; Eosinophils% 8.7 % (0-5); Hematocrit 41.7 % (40-54); Hemoglobin 14.5 g/dL (13.0-16.5); Lymphocyte # 1.98 X10^3/ul (0.83-4.51); Lymphocyte % 26.8 % (19-41); Mean Corp Hgb Conc 34.8 g/dL (32-36); Mean Corpuscular Hgb 34.1 pg (27.0-32.0); Mean Corpuscular Volume 98.1 fL (80-94); Mean Platelet Vol. 10.3 fl (6.2-12.0); Monocyte# 0.81 X10^3/uL; NRBC Flagged by Analyzer 0 % (0-5); Neutrophil # 3.89 X10^3/uL (2.7-7.7); Neutrophil % 52.6 % (47-70); Platelet Count 252 K/mm3 (150-450); RBC Distribution Width SD 43.2 fl (35.1-43.9); Red Blood Count 4.25 M/mm3 (4.6-6.2); White Blood Count 7.4 K/mm3 (4.4-11.0)
[2024-01-22 06:48] LABS: Anion Gap 4 (5-15); BUN 9 mg/dL (7-18); BUN/Creat Ratio 12.2 RATIO (10-20); Calcium,Total 8.7 mg/dL (8.5-10.1); Chloride 107 mmol/L (98-107); Creatinine, Serum 0.74 mg/dL (0.70-1.30); EST Glomerular Filtration Rate 118 mL/min (>60); Est Glom Filt Rate - Afr Amer 143 mL/min (>60); Estimated Creatinine Clearance 117.83 ml/min; Glucose 91 mg/dL (74-106); Potassium 3.6 mmol/L (3.5-5.1); Sodium Level 138 mmol/L (136-145)
[2024-01-22 08:02] VITALS: O2SAT 96
[2024-01-22 09:01] VITALS: BP 113/73; PULSE 69; RESP 16; TEMP 36.8; O2SAT 98
[2024-01-22 09:04] VITALS: BP 113/73; PULSE 67; RESP 16; TEMP 36.8; O2SAT 98
--- NOTE | 2024-01-22 11:05 | CASEMGMT ---
RN CM Face to Face with patient for initial transition planning/care coordination assessment. RN CM introduced self and role at [facility]. Patient lying in bed, alert and oriented. Patient willing to participate in assessment and is able to answer all questions appropriately. Care providers, pharmacy, and demographics verified. Strata: 1 PCP: [facility], patient could not recall PCP's name Specialists: none Preferred Pharmacy: [facility] Insurance: [employer] Prescription Benefit: yes Living Will/HPOA: none LNOK: Living Arrangements: Patient lives in split level home with 7 steps and railing between levels. Patient is independent and able to ambulate stairs. Transportation: self, DME/HHC: Patient denies DME in the home. No previous HHC or SNF Patient wishes to discharge home, denies need for home health at this time. Patient states he has no further needs or concerns at this time. CM to follow for discharge planning needs that may arise. Disposition Plan: Patient to discharge home with family support and follow-up plans in place. Linda HENDRICKS, RN, CM
[2024-01-22 12:31] VITALS: BP 113/73; PULSE 67
[2024-01-22] MEDS: Metoprolol Tartrate 25 MG Tablet PO (12:31)
--- NOTE | 2024-01-22 14:04 | DS.PCM_ITS ---
Providers Date of Admission: 01/21/24 Date of Discharge: 01/22/24 Primary Care Physician: No Primary Care Phys Consultations 01/21/24 15:29 Consult: Cardiology Routine Consulting Provider: Cj Fajardo Reason for Consult: SVT EMERGENT Consult: No MD Notified: Yes Date Notified: 01/21/24 Time Notified: 15:29 Method of Notification: Verbal Reason For Visit: SVT, CHEST PAIN Diagnosis Discharge Diagnosis (1) Dizziness: Status: Acute Code(s): R42 - Dizziness and giddiness (2) Chest pain: Status: Acute Code(s): R07.9 - Chest pain, unspecified (3) SVT (supraventricular tachycardia): Status: Acute Code(s): I47.10 - Supraventricular tachycardia, unspecified Plan #Chest pain to rule out ACS * admit to PCU * PO aspirin 91mg daily * EKG showed no acute ST changes and showed SVT * get 2D echo * for stress test * SL nitroglycerin prn * cycle troponins. #SVT * Was found to be in SVT in the ED * EKG showed SVT. He also went into SVT when I was reviewing him, with HR going up to the 160s. This only improved with Valsalva maneuver. * Start on PO metoprolol * get 2D echo * cardiology consulted. * Keep K and Mg > 4 and 2 respectively * #Nicotine dependence * counseled to quit. Says he smokes a pack a day. Nicotine patch 21mg daily * #History of chronic alcohol abuse * drinks about 3-4 beers daily. * place on alcohol withdrawal protocol with ativan * monitor CIWA score * DVT prophylaxis; heparin. Code status: full code * Patient counseled extensively about different types of CODE STATUS including full code, DNR CCA and DNR CCA. Patient elects to be full code. Total [id number] time 17 minutes. Medications at Discharge Home Medications NK 11/05/22 metoprolol tartrate 25 mg tablet 25 mg PO BID #60 tabs 01/22/24 Hospital Course Operations None Procedures 2-D Echocardiogram and Stress test Summary of Care Provided Minutes Spent on Discharge: 55 Hospital Course: AMITA MCCRACKEN, is a 53 M with a PMH as outlined who presents via the ED on 01/21/2024 with a complaint of chest pain. Chest pain started the night before admission, and radiated to his neck. He had associated frontal headache adn felt like he was being stabbed in the chest with a knife. He denied any dizziness or lightheadedness, palpitation, nausea or vomiting. Review of systems otherwise negative. Vitals in the ED were BP of 114/64, DE of 80, RR of 18 and temp of 99.4F. He was saturating at 97% on room air. CBC showed Hb of 15.6, wbc of 10.3 and platelets of 279. INR was 0.9 and Chemistry showed sodium of 141, potassium of 4 and Cr of 0.8. Troponins x 2 were negative. CTA chest, abdomen adn pelvix was unremarkable and showed no evidence of aortic dissection or PE. He was noted to go into SVT in the ED with a heart rate of ~ 200, which spontaneously terminated. He did have associated chest pain at the time of the SVT. He was admitted to be managed for chest pain to rule out ACS, in the setting of SVT. Cardiology was consulted and he was started on p.o. metoprolol 25 mg twice daily. 2D echo showed normal left ventricular size and systolic function with EF of 70% and structurally normal valves. He also had a stress test which showed no evidence of ischemia. Cardiology recommended that patient could be discharged home and needs follow-up with his primary care doctor and with cardiology also. Patient was counseled to quit drinking as alcohol can also also cause arrhythmias and was also counseled to quit smoking. Patient seen and examined prior to discharge. He had no complaints and had an uneventful night. Review of systems otherwise negative. Labs and vitals reviewed. Home medication reviewed and reconciled. Physical Exam Const alert, oriented x3 and no apparent distress General Appearance: cooperative and comfortable Orientation / Consciousness: awake Exam Limitations: no limitations HEENT normocephalic, head/scalp atraumatic, hearing grossly normal bilaterally, moist oral mucous membranes and oropharynx normal Eyes PERRL, EOMs intact bilaterally and conjunctivae normal Neck no lymphadenopathy and supple Resp normal respiratory effort, no retractions, no use of accessory muscles and clear to auscultation bilaterally Cardio regular rate, regular rhythm, S1 normal heart sound, S2 normal heart sound and no murmurs GI normal to inspection, nondistended, normoactive bowel sounds, soft to palpation, non-tender and non-distended Extremity normal to inspection, full ROM and no clubbing, cyanosis or edema Skin no rashes or lesions noted Neuro oriented x3, CN's II-XII intact bilaterally, moves all extremities and no focal motor deficits Sensorium / Orientation: awake and alert Motor Exam: strength 5/5 throughout Psych affect normal Weight / BMI Weight Weight: 180 lb 5.41 oz Body Mass Index (BMI) 25.9 ABG / Lab / Microbiology Data 01/22/24 05:54 01/22/24 05:54 Laboratory: Laboratory Results - last 24 hr 01/21/24 14:00: Magnesium 1.7, Troponin I High Sens 4 01/22/24 05:54: WBC 7.4, RBC 4.25 L, Hgb 14.5, Hct 41.7, MCV 98.1 H, MCH 34.1 H, MCHC 34.8, RDW Std Deviation 43.2, RDW Coeff of Buffy 12.0, Plt Count 252, MPV 10.3, Immature Gran % (Auto) 0.400, Neut % (Auto) 52.6, Lymph % (Auto) 26.8, M jenna % (Auto) 11.0 H, Eos % (Auto) 8.7 H, Baso % (Auto) 0.5, Absolute Neuts (auto) 3.9, Absolute Lymphs (auto) 1.98, Nucleated RBC % 0, Sodium 138, Potassium 3.6, Chloride 107, Carbon Dioxide 27.0, Anion Gap 4 L, BUN 9, Creatinine 0.74, Estim Creat Clear Calc 117.83, Est GFR (MDRD) Af Amer 143, Est GFR (MDRD) Non-Af 118, BUN/Creatinine Ratio 12.2, Glucose 91, Calcium 8.7 Radiography Diagnostic Testing: Radiology Impression Echocardiogram 01/21/24 13:46 Interpretation Summary Normal LV size. Left ventricular systolic function is normal. The left ventricular ejection fraction is 70 %. Structurally normal valves. Ordering Physician: Emma Loyola Referring Physician: NEERU PCP Performed By: Damir MAKI [facility], Ana Laura and Student D/C Instructions Discharge Diet: Low fat / Low cholesterol Discharge Activity: Return to Normal Activity Weight Bearing Status: Weight bearing as tolerated Call your doctor if you observe: Fever of 101 or Higher, Shortness of breath, Dizziness, Swelling in the ankles and Chest pain Meaningful Use Info Meaningful Use Meaningful Use Diagnoses (Choose all that apply): None applicable Ischemic Stroke Statin Dosing Therapy Reference: STATIN DOSE THERAPY REFERENCE: * Patients > 75 years receive moderate or high dose statin therapy. * Patients 75 years or YOUNGER should receive HIGH intensity statin dose unless contraindicated. You will be required to document reason for non-treatment if statin daily dose does not meet guidelines. HIGH DOSE STATIN THERAPY DAILY Atorvastatin > than or = to 40 mg Rosuvastatin > than or = to 20 mg Amlodipine + Atorvastatin > than or = to 2.5/40 mg Ezetimibe + Simvastatin 10/80 mg Simvastatin 80mg Discharge Plan Admission Admit Date/Time: 01/21/24 13:12 Primary Reason for Your Visit: SVT Attending Provider: Emma Loyola Primary Care Provider: Care Physician,Neeru Primary Consulting Providers: Cj Fajardo Instructions Patient Instructions: Supraventricular Tachycardia, Treatment for Supraventricular ... Discharge Orders/Prescriptions Prescriptions: New metoprolol tartrate 25 mg Tablet 25 mg PO BID Qty: 60 2RF No Action NK Referrals / Follow Up: Cj Fajardo MD [Med Staff - Active Staff] - Within 2 Weeks Con Horn MD [Med Staff - Active Staff] - Within 1 Month (see to establish PCP care) Care Physician,No Primary [Primary Care Provider] - Disposition Disposition (needs filled in before D/C Order can be placed): Home, Self Care Charges/Coding Visit Charges Inpatient E&M: 21154 Disch Hosp >30min
--- NOTE | 2024-01-22 14:08 | TREXTCAR_ITS ---
Diet Diet Order/Speech Therapy: 01/22/24 13:00 Diet: Cardiac - Heart Healthy Routine Orders/Code Status Enema Type: Fleetz Enema Frequency: Daily PRN Suppository Type: Dulcolax 10mg Suppository Frequency: Daily PRN O2 Frequency: PRN Keep PO Greater than or Equal to (%): 90 Therapies Weight Bearing: Weight bearing as tolerated Physical Therapy: Eval and Treat Occupational Therapy: Eval and Treat Problem/Diagnosis (1) Dizziness: Status: Acute Code(s): R42 - Dizziness and giddiness (2) Chest pain: Status: Acute Code(s): R07.9 - Chest pain, unspecified (3) SVT (supraventricular tachycardia): Status: Acute Code(s): I47.10 - Supraventricular tachycardia, unspecified Plan #Chest pain to rule out ACS * admit to PCU * PO aspirin 91mg daily * EKG showed no acute ST changes and showed SVT * get 2D echo * for stress test * SL nitroglycerin prn * cycle troponins. #SVT * Was found to be in SVT in the ED * EKG showed SVT. He also went into SVT when I was reviewing him, with HR going up to the 160s. This only improved with Valsalva maneuver. * Start on PO metoprolol * get 2D echo * cardiology consulted. * Keep K and Mg > 4 and 2 respectively * #Nicotine dependence * counseled to quit. Says he smokes a pack a day. Nicotine patch 21mg daily * #History of chronic alcohol abuse * drinks about 3-4 beers daily. * place on alcohol withdrawal protocol with ativan * monitor CIWA score * DVT prophylaxis; heparin. Code status: full code * Patient counseled extensively about different types of CODE STATUS including full code, DNR CCA and DNR CCA. Patient elects to be full code. Total [id number] time 17 minutes. Allergies/Procedures Done in Hospital Allergies tree nut Allergy (Verified 11/05/22 05:16) NEEDS FOLLOW-UP Procedures: 2-D Echocardiogram and Stress Test Type of Care/Length of Stay Estimated LOS: Convalescent Care Less Than 30 days Rehab Potential: Fair Discharge Plan Admission Admit Date/Time: 01/21/24 13:12 Primary Reason for Your Visit: SVT Attending Provider: Emma Loyola Primary Care Provider: Care Physician,No Primary Consulting Providers: Cj Fajardo Instructions Patient Instructions: Supraventricular Tachycardia, Treatment for Supraventricular ... Discharge Orders/Prescriptions Prescriptions: New metoprolol tartrate 25 mg Tablet 25 mg PO BID Qty: 60 2RF No Action NK Referrals / Follow Up: Cj Fajardo MD [Med Staff - Active Staff] - Within 2 Weeks Con Horn MD [Med Staff - Active Staff] - Within 1 Month (see to establish PCP care) Care Physician,No Primary [Primary Care Provider] - Disposition Disposition (needs filled in before D/C Order can be placed): Home, Self Care
--- NOTE | 2024-01-22 14:09 | DCINST_ITS ---
Discharge Instructions Diet Discharge Diet: Low fat / Low cholesterol Activity Discharge Activity: Return to Normal Activity Weight Bearing Status: Weight bearing as tolerated Dressing / Incision Call your doctor if you observe: Fever of 101 or Higher, Shortness of breath, Dizziness, Swelling in the ankles and Chest pain Follow Up Care Test Results: Test results from this visit will be discussed in further detail at your follow- up appointment, if applicable. Discharge Plan Admission Admit Date/Time: 01/21/24 13:12 Primary Reason for Your Visit: SVT Attending Provider: Emma Loyola Primary Care Provider: Care Physician,Neeru Primary Consulting Providers: Cj Fajardo Instructions Patient Instructions: Supraventricular Tachycardia, Treatment for Supraventricular ... Discharge Orders/Prescriptions Prescriptions: New metoprolol tartrate 25 mg Tablet 25 mg PO BID Qty: 60 2RF No Action NK Referrals / Follow Up: Cj Fajardo MD [Med Staff - Active Staff] - Within 2 Weeks Con Horn MD [Med Staff - Active Staff] - Within 1 Month (see to establish PCP care) Care Physician,No Primary [Primary Care Provider] - Disposition Disposition (needs filled in before D/C Order can be placed): Home, Self Care
--- NOTE | 2024-01-22 15:09 | CHAPLAIN ---
Type of Pastoral Visit _x__ Initial Visit ___ Follow-up Visit ___ On-call Visit ___ General Patient Visit ___ Spiritual Assessment ___ Family Conference ___ Bereavement ___ Rapid Response ___ Code Blue ___ Other (describe below) Pastoral Care Referral From _x__ Patient ___ Family ___ Nurse ___ Physician ___ [employer] Ticket Sales ___ Fence Erector ___ Other (describe below) Sacrament/Intervention _x__ Active listening ___ Anointing ___ Religious ___ Bereavement ___ Communion _x__ Evelia exploration ___ _x__ Life review _x__ Prayer ___ Reconciliation ___ Sacrament of Sick _x__ Supportive presence ___ Wedding ___ Other (describe below) Pastoral Comments patient acknowledges the sudden illness and shock of facing his own morality; pt is tearful at times, briefly, during the conversation when talking about how he felt and how scary the event has been; pt talks of gaining a new appreciation for what is important in life and immediately making phone calls to his family members; pt gives some life review; explored the evelia component and how that is helpful; pt will address changes in life habits and will focus more on the important things; pt welcomes presence and prayer and expresses appreciation for the same
--- NOTE | 2024-01-22 15:40 | STRESSREP ---
Stress Test Report Exercise myocardial perfusion stress test. 53-year-old man with a history of supraventricular tachyarrhythmia Stress protocol: Resting EKG demonstrates sinus bradycardia with a rate of 48 bpm resting blood pressure is 100/70 mmHg. The patient exercised according to the regular Anmol protocol for a total duration of 10 minutes attaining a maximum heart rate of 129 bpm which was 77% of maximum predicted heart rate; the maximum workload was 13.4 metabolic equivalents. At rest there were no ST or T wave changes noted to suggest ischemia and at peak exercise upsloping ST changes only were noted which did not meet the criteria for ischemia. No clinical angina was noted the test was terminated due to the target heart rate being achieved/fatigue. There was mild throat discomfort noted at peak exercise of unclear significance. The peak blood pressure was 142/80 mmHg. Rate-pressure product was 15,600. Myocardial perfusion protocol. 10.5 mCi of technetium 99m sestamibi was injected at rest. The patient exercised according to regular Anmol protocol for total duration of 10 minutes and at peak exercise 31.3 mCi of technetium 99m sestamibi was injected stress images were obtained stress and rest images were reconstructed in comparing the short axis vertical long and horizontal long axis. Gated images were also obtained. Perfusion SPECT analysis: Review of the stress images demonstrate normal uptake of tracer noted in all areas of the myocardium. The resting images similarly demonstrate normal uptake of tracer noted in all areas of the myocardium. No areas of reversibility are noted to suggest ischemia no previous infarct was noted. Gated SPECT analysis: The gated ejection fraction is 65%. Conclusion: Normal exercise myocardial perfusion stress test at a high workload Preserved ejection fraction.
[2024-01-22 15:48] VITALS: BP 105/66; PULSE 62; RESP 16; TEMP 36.6; O2SAT 100
== END 2024-01-22 15:51 | disposition home or self-care (01) | DRG 310 ==
LOC: ED 07:42 → PCU 13:23
PROVIDERS: Admitting Provider Student in an Organized Health Care Education/Training Program; Emergency Provider Emergency Medicine; Visit Provider Student in an Organized Health Care Education/Training Program
DX: I47.10 Supraventricular tachycardia, unspecified (principal); F17.210 Nicotine dependence, cigarettes, uncomplicated; R07.9 Chest pain, unspecified
CPT/HCPCS: 36415; 70450; 71275; 74174; 78452; 80048; 80076; 81001; 83605; 83735; 84484; 85025; 85610; 85730; 93005; 93017; 93306; 99285; A9500; Q9967; A4216